=== PATIENT | male | born 1990 | race Caucasian/White ===

== ENCOUNTER 2018-04-05 05:36 | Emergency (ER) | payer MEDICAID, OTHER ==
[~2018-04-05] VITALS: Ht 185.4 cm; Wt 80.0 kg
[~2018-04-05 05:36] MED LIST: METH-360 PO
[2018-04-05] MEDS ORDERED: TETRACAINE 0.5% 5 ML OPHTHALMIC DROPS EACHEYE ONE (06:10)
[2018-04-05] MEDS ORDERED: HYDROcodone/acetaminophen 5mg/325mg tablet PO ONE (06:15)
[2018-04-05 06:31] VITALS: BP 130/85
[2018-04-05] MEDS ORDERED: ERYT1OIN6 RIGHTEYE (06:49)
[2018-04-05] MEDS ORDERED: TRAM50TA2 PO (06:49)
== END 2018-04-05 07:00 | disposition home or self-care (01) ==
LOC: ER 05:37
DX: S05.01XA Injury of conjunctiva and corneal abrasion without foreign body, right eye, initial encounter (principal); F17.200 Nicotine dependence, unspecified, uncomplicated; W22.8XXA Striking against or struck by other objects, initial encounter; Y93.89 Activity, other specified; Y92.89 Other specified places as the place of occurrence of the external cause; Y99.8 Other external cause status
CPT/HCPCS: 99283

== ENCOUNTER 2019-05-27 22:00 | Emergency (ER) | payer MEDICAID ==
[~2019-05-27] VITALS: Ht 185.4 cm; Wt 84.1 kg
[2019-05-27 22:19] VITALS: BP 143/94
[2019-05-27 22:44] LABS: CLARITY,URINE SLIGHTLY CLOUDY (Clear); COLOR,URINE YELLOW (Yellow); GLUCOSE, URINE NEGATIVE (Neg); KETONES,URINE NEGATIVE (Neg); LEUKOCYTE ESTERASE ,URINE SMALL (Neg); NITRITES, URINE NEGATIVE (Neg); OCCULT BLOOD,URINE NEGATIVE (Neg); PROTEIN,URINE NEGATIVE (Neg); UROBILINOGEN,URINE 0.2 E.U/dL (0.2-1.0)
[2019-05-27 22:48] LABS: UA COLLECTION TYPE CLN CATCH MIDSTREAM
[2019-05-27 22:52] LABS: AMORPHOUS PHOSPHATES 1+; BACTERIA,URINE NONE SEEN /HPF (Neg); MUCUS STRANDS FEW /LPF (Neg); RBC,URINE 0-2 /HPF (0-2); SQUAMOUS EPITHELIAL CELL,UR FEW /LPF (FEW); WBC,URINE 30-50 /HPF (0-4)
[2019-05-27] MEDS ORDERED: CefTRIAXone 1000mg IM Kit (w/lidocaine diluent) IM ONE (23:05)
[2019-05-27] MEDS ORDERED: azithromycin 250mg tablet PO ONE (23:05)
== END 2019-05-27 23:47 | disposition home or self-care (01) ==
LOC: ER 22:00
DX: R36.9 Urethral discharge, unspecified (principal); F10.99 Alcohol use, unspecified with unspecified alcohol-induced disorder; Z79.899 Other long term (current) drug therapy; Y90.9 Presence of alcohol in blood, level not specified
CPT/HCPCS: 36415; 81001; 87077; 87088; 87185; 87491; 87591; 96372; 99283; J0696

== ENCOUNTER 2020-09-01 01:04 | Emergency (ER) | payer MEDICAID ==
[~2020-09-01] VITALS: Ht 185.4 cm; Wt 81.8 kg
[2020-09-01 01:09] VITALS: BP 131/98
[2020-09-01] MEDS ORDERED: ciprofloxacin 0.3% 2.5ml ophthalmic solution EACHEYE ONE (01:40)
[2020-09-01] MEDS ORDERED: naphazoline/pheniramine eye 1 DROP BOTTLE EACHEYE PRN (01:40)
== END 2020-09-01 02:03 | disposition home or self-care (01) ==
LOC: ER 01:04
DX: H10.9 Unspecified conjunctivitis (principal); F17.210 Nicotine dependence, cigarettes, uncomplicated; Z72.89 Other problems related to lifestyle; Z98.890 Other specified postprocedural states
CPT/HCPCS: 99283

== ENCOUNTER 2021-07-25 12:33 | Emergency (ER) | payer MEDICAID | END 2021-07-25 14:09 | disposition left against medical advice (07) | LOC: ER 12:34 | DX: Z53.21 Procedure and treatment not carried out due to patient leaving prior to being seen by health care provider (principal) ==

== ENCOUNTER 2024-02-19 13:38 | Emergency (ER) | payer MEDICAID ==
[~2024-02-19] VITALS: Ht 185.4 cm; Wt 84.1 kg
[2024-02-19 13:41] VITALS: BP 144/92; PULSE 115; RESP 18; TEMP 98.4; O2SAT 98
[2024-02-19 14:36] LABS: BASOPHILS # (AUTO) 0.1 X10'3 (0-0.2); BASOPHILS % (AUTO) 0.6 % (0-1); EOSINOPHILS # (AUTO) 0.1 X10'3 (0-0.9); EOSINOPHILS % (AUTO) 1.4 % (0-6); HEMATOCRIT 47.3 % (42.0-52.0); HEMOGLOBIN 15.9 g/dl (14.0-17.9); LYMPHOCYTES # (AUTO) 1.1 X10'3 (1.1-4.8); LYMPHOCYTES % (AUTO) 12.7 % (21-51); MEAN CORPUSCULAR HEMOGLOBIN 30.9 PG (27.0-31.0); MEAN CORPUSCULAR HGB CONC 33.6 g/dL (33.0-36.5); MEAN CORPUSCULAR VOLUME 92.1 FL (78-98); MEAN PLATELET VOLUME 8.2 FL (7.4-10.4); MONOCYTES # (AUTO) 0.3 X10'3 (0-0.9); MONOCYTES % (AUTO) 3.7 % (2-12); NEUTROPHILS # (AUTO) 7.2 X10'3 (1.8-7.7); NEUTROPHILS % (AUTO) 81.6 % (42-75); PLATELET COUNT 246 X10'3 (140-440); RED BLOOD COUNT 5.14 X10'6 (4.70-6.10); RED CELL DISTRIBUTION WIDTH 14.8 % (11.5-14.5); WHITE BLOOD COUNT 8.9 X10'3 (4.5-11.0)
[2024-02-19 14:55] LABS: ALANINE AMINOTRANSFERASE 23 U/L (12-78); ALBUMIN 3.8 G/DL (3.4-5.0); ALKALINE PHOSPHATASE 113 IU/L (46-116)
[2024-02-19 15:03] LABS: ASPARTATE AMINO TRANSFERASE 15 U/L (10-37); BLOOD UREA NITROGEN 13 MG/DL (7-18)
[2024-02-19 15:11] LABS: ANION GAP 4 (8-16); BILIRUBIN,TOTAL 0.3 MG/DL (0.1-1.0); CHLORIDE 104 MMOL/L (99-107); CREATININE 1.08 MG/DL (0.60-1.10); GLUCOSE 88 MG/DL (70-104); POTASSIUM 4.5 MMOL/L (3.5-5.1); PRO BRAIN NATRIURETIC PEPTIDE < 30 PG/ML (0-125); SODIUM 141 MMOL/L (135-145); TOTAL CARBON DIOXIDE 32.8 MMOL/L (24-32); TOTAL PROTEIN 7.6 G/DL (6.4-8.2); eCRCL 108 ML/MIN; eGFR 78 ML/MIN
== END 2024-02-19 15:51 | disposition home or self-care (01) ==
LOC: ER 13:39
DX: R07.89 Other chest pain (principal); F41.9 Anxiety disorder, unspecified; M79.605 Pain in left leg; Z72.89 Other problems related to lifestyle
CPT/HCPCS: 36415; 71045; 80053; 83880; 84484; 85025; 93005; 99285

== ENCOUNTER 2024-03-28 13:32 | Emergency (ER) | payer MEDICAID | END 2024-03-28 15:09 | disposition left against medical advice (07) | LOC: ER 13:33 | DX: Z53.21 Procedure and treatment not carried out due to patient leaving prior to being seen by health care provider (principal) ==

== ENCOUNTER 2024-06-07 15:59 | Emergency (ER) | payer MEDICAID ==
[~2024-06-07] VITALS: Ht 185.4 cm; Wt 88.0 kg
[2024-06-07 16:11] VITALS: BP 151/88; TEMP 97.5
[2024-06-07] MEDS ORDERED: ALBU8HFA INH (18:44)
[2024-06-07] MEDS ORDERED: PRED20TA PO (18:44)
[2024-06-07] MEDS ORDERED: PROM25TA14 PO (18:44)
[2024-06-07] MEDS: ipratropium/albuterol 3ml nebule NEB STA (19:03)
[2024-06-07 19:05] VITALS: PULSE 95; RESP 16; O2SAT 98
[2024-06-07 19:13] VITALS: PULSE 98; RESP 16; O2SAT 8
[2024-06-07] MEDS: dexamethasone sod phosphate 10mg/ml inj IM STA (19:22)
[2024-06-07] MEDS: proMETHazine 25mg tablet PO ONE (19:22)
[2024-06-07 19:23] VITALS: RESP 16
[2024-06-07] MEDS: ketorolac trometh 30MG/ML vial 30 MG/ML VIAL IV ONE (19:23)
== END 2024-06-07 19:29 | disposition home or self-care (01) ==
LOC: ER 15:59
DX: J22 Unspecified acute lower respiratory infection (principal); M79.10 Myalgia, unspecified site
CPT/HCPCS: 71045; 94640; 96372; 96374; 99284; J1100; J1885; Q0169; 94760

== ENCOUNTER 2024-10-03 15:43 | Emergency (ER) | payer MEDICAID ==
[~2024-10-03] VITALS: Ht 185.4 cm; Wt 84.1 kg
[2024-10-03 15:44] VITALS: BP 142/94; PULSE 110; RESP 18; TEMP 97.8; O2SAT 98
--- NOTE | 2024-10-03 15:51 | Physician Documentation ---
History of Present Illness ~ General Chief Complaint: Medical Clearance Stated Complaint: "MEDICAL CLEARANCE TO GO TO [facility]" Time Seen by MD: 15:51 Primary Medical Doctor: MAGY History of Present Illness Initial Comments 34-year-old male presents to the ED were requesting to go to [facility] via medical clearance from the ED. He states he drinks alcohol up to one pt daily. Says he used to drink a full 5th every day. Last drink was this morning. Medication Reconciliation Allergies: Coded Allergies: No Known Allergies (Unverified , 06/07/24) Scheduled Chlordiazepoxide Hcl (Librium), 25 MG PO TID Methocarbamol (Robaxin-750), 1 TAB PO Q12H Past Medical History Past Medical History: No Pertinent History Past Surgical History: no surgical history Alcohol Use: Occasionally Drug Use: none Lives with: Family Lives In: Home Review of Systems All Other Systems at this time: Reviewed and Negative ROS As stated above in the HPI, otherwise all systems are reviewed and negative. Physical Exam Physical Exam Vital Signs: Temperature: 97.8, Heart Rate: 110, Respiratory Rate: 18, BP: 142/94, Pulse Oximetry: 98, Weight: 84.090 Oxygen Flow Rate: 0 Physical Exam General: Alert, no apparent distress. mildly tremulous Neurologic: Oriented x4. Psychiatric: Normal mood and affect. anxious appearing Skin: Normal color, warm and dry. No edema, no ecchymosis. Progress Results/Orders Results/Orders Completed Orders - BENJI RECIO NP Chlordiazepoxide Capsule (Librium Capsul (10/03/24 15:55) Vital Signs 10/03/24 15:44 Temp 97.8 Pulse 110 Resp 18 B/P (MAP) 142/94 Pulse Ox 98 O2 Flow Rate 0 Medical Decision Making Findings Patient presents with mild to moderate ETOH withdrawal. Certainly meets criteria for treatment via Librium and then medical clearance for alcohol rehab. States he has never been hospitalized and never had severe withdrawals however he does appear anxious in mildly tremulous Departure Disposition: 01 HOME / SELF CARE / HOMELESS Impression: Primary Impression: General medical exam Condition: Stable Discharge Instructions: Alcohol Withdrawal Syndrome, [id number], Medical Screening Exam Referrals: NO PRIMARY CARE PROVIDER (PCP) Prescriptions Chlordiazepoxide Hcl (Librium) 25 Mg Capsule 25 MG PO TID for 5 Days, #15 CAP 0 Refills Prov: BENJI RECIO NP 10/03/24 Education Educated: Patient Educated regarding: diagnosis Signature Scribe Signature: f Attestation: The note accurately reflects work and decisions made by me.Benji Recio - IRCARDO 10/03/24 16:03 BENJI RECIO NP October 03, 2024 15:51
[2024-10-03] MEDS ORDERED: CHLO25CA10 PO (16:02)
[2024-10-03] MEDS: chlordiazePOXIDE 25mg capsule PO ONE (16:15)
== END 2024-10-03 16:24 | disposition home or self-care (01) ==
LOC: ER 15:43
DX: Z02.9 Encounter for administrative examinations, unspecified (principal); Z79.899 Other long term (current) drug therapy; Z72.89 Other problems related to lifestyle
CPT/HCPCS: 99283